=== PATIENT | female | born 1995 | race Caucasian/White ===

== ENCOUNTER 2018-03-27 17:59 | Emergency (ER) | payer SELFPAY ==
--- NOTE | 2018-03-27 18:29 | Emergency Department Record ---
History of Present Illness - General Stated complaint: VAGINAL BLEEDING/ Time Seen by Provider: 03/27/18 18:23 Source: Patient Mode of Arrival: Ambulatory Limitations: No limitations - History of Present Illness Initial comments: 22 yo has female presents to ED for evaluation of intermittent vaginal spotting for the past 2 weeks. Patient reports that she is approximately 5 weeks after seeing her OB last week, reports mild-moderate "sharp" RLQ pains that began yesterday. Patient reports similar symptoms prior to miscarriage last May. Patient denies health problems at her baseline. MD Complaint: Vaginal bleeding Onset/Timin -: Week(s) Location: RLQ Radiation: Non-radiating Severity: Moderate Quality: Sharp Consistency: Intermittent Improves with: None Worsens with: None Patient : Yes Associated Symptoms: Denies other symptoms - Related Data Sexually active: Yes Home Medications Medication Instructions Recorded Confirmed Last Taken No122/Iron/Folic Acid 1 each PO DAILY 03/27/18 03/27/18 1 Day Ago [ Multi Tablet] ~03/26/18 Allergies Allergy/AdvReac Type Severity Reaction Status Date / Time No Known Drug Allergies Allergy Verified 03/27/18 18:39 Review of Systems Constitutional: Denies: Chills, Fever, Malaise, Night sweats Eyes: Denies: Eye discharge, Eye pain ENT: Denies: Congestion, Ear pain, Epistaxis Respiratory: Denies: Cough, Dyspnea Cardiovascular: Denies: Chest pain, Dyspnea on exertion Endocrine: Denies: Fatigue, Heat or cold intolerance Gastrointestinal: Reports: Abdominal pain. Denies: Nausea, Vomiting Genitourinary: Reports: Other (Vaginal bleeding). Denies: Incontinence, Retention Musculoskeletal: Denies: Arthralgia, Back pain, Gout, Joint swelling Skin: Denies: Bruising, Change in color Neurological: Denies: Abnormal gait, Confusion, Headache, Tingling Psychiatric: Denies: Anxiety Hematological/Lymphatic: Denies: Anemia, Blood Clots Physical Exam - General General Appearance: Alert, Oriented x3, Cooperative, Mild distress Limitations: No limitations - Head Head exam: Atraumatic, Normocephalic, Normal inspection Head exam detail: negative: Abrasion, Contusion, Tolbert's sign, General tenderness, Hematoma, Laceration - Eye Eye exam: Normal appearance. negative: Conjunctival injection, Periorbital swelling, Periorbital tenderness, Scleral icterus - ENT Ear exam: negative: Auricular hematoma, Auricular trauma Nasal Exam: negative: Active bleeding, Discharge, Dried blood, Foreign body Mouth exam: negative: Drooling, Laceration, Muffled voice, Tongue elevation - Neck Neck exam: Normal inspection. negative: Meningismus, Tenderness - Respiratory Respiratory exam: Normal lung sounds bilaterally. negative: Rhonchi, Stridor, Wheezes - Cardiovascular Cardiovascular Exam: Regular rate, Normal rhythm, Normal heart sounds - GI/Abdominal GI/Abdominal exam: Soft, Tenderness (Mild TTP RLQ< no rebound, guarding, or peritoneal signs). negative: Rebound, Rigid - Rectal Rectal exam: Deferred - exam: Deferred - Extremities Extremities exam: Normal inspection. negative: Calf tenderness, Pedal edema, Tenderness - Back Back exam: Denies: CVA tenderness (R), CVA tenderness (L) - Neurological Neurological exam: Alert, Normal gait, Oriented X3 - Psychiatric Psychiatric exam: Normal affect, Normal mood - Skin Skin exam: Normal color. negative: Abrasion Type of lesion: negative: abrasion Course - Reevaluation(s) Reevaluation #1: 03/27/18 18:32 US is not currently available to exclude ectopic, will initiate transfer to [facility] for pelvic US and further evaluation. Reevaluation #2: 03/27/18 18:36 Case was discussed with Dr. Hernandez (ED Attending at [facility]), will accept transfer for further evaluation. Patient was updated on the plan of care, appears stable for transfer by private car directly to [facility] for evaluation. Disposition Disposition: Transfer Clinical Impression: Vaginal bleeding before 22 weeks gestation Disposition: Acute Care Hospital Transfer Transfer To: [facility] Reason For Transfer: Vaginal spotting in early Accepting Physician: David Time Discussed w/Accepting Physician: 18:33 Condition: (2) Stable Forms: Patient Portal Access Time of Disposition: 18:33 Quality - Quality Measures Quality Measures: N/A, (14-50yr) - : US Determination Quality Measure: Measure #254: US Determination of Location US Determination of Location: < Trans-Abdominal or Trans-Vaginal US Performed > [G8806] Reason for No US: Other (US not available) - : Rhogam Quality Measure: Measure #255: Rhogam for Rh-Negative Women ICD10 Codes Entered: Yes Rhogam for Rh-Negative Women at Risk: Rh-immunoglobulin NOT Ordered [ G8811] Reason for not prescribing Rhogam: Other (Transfer for further evaluation.) - Blood Pressure Screening Does Patient Have Any of the Following: No Blood Pressure Classification: Normal BP Reading Systolic Measurement: 106 Diastolic Measurement: 71 Screening for High Blood Pressure: < Normal BP, F/U Not Required > [G8783]
== END 2018-03-27 18:58 | disposition short-term general hospital (02) ==
LOC: ER 17:59
DX: O20.9 Hemorrhage in early pregnancy, unspecified (principal); R10.31 Right lower quadrant pain; Z3A.01 Less than 8 weeks gestation of pregnancy
CPT/HCPCS: 99284